=== PATIENT | female | born 1980 | race Caucasian/White ===

== ENCOUNTER 2019-02-02 08:48 | Emergency (ER) | payer BC ==
[~2019-02-02] VITALS: Ht 167.6 cm; Wt 89.0 kg
[2019-02-02 08:58] VITALS: BP 130/79
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
== END 2019-02-02 10:06 | disposition home or self-care (01) ==
LOC: ED 09:53
DX: J02.9 Acute pharyngitis, unspecified (principal)
CPT/HCPCS: 99283